=== PATIENT | male | born 1940 | race Caucasian/White ===

== ENCOUNTER 2020-01-15 13:30 | Inpatient (IN) ==
[2020-01-15] MEDS ORDERED: Aspirin 81 MG TAB.CHEW PO ONE (13:44)
[2020-01-15] MEDS ORDERED: 0.9 % Sodium Chloride 1,000 ML ONE (13:46)
[2020-01-15] MEDS ORDERED: *HR* Heparin 5,000 UNIT/ML VIAL ONE (13:46)
[2020-01-15] MEDS: *HR* Ticagrelor 90 MG TABLET ONE ×2 (13:51→13:52)
[2020-01-15 14:05] LABS: Basophils # 0.1 K/mcL (0.0-0.2); Basophils % 0.6 %; Eosinophils # 0.1 K/mcL (0.0-0.6); Eosinophils % 0.6 %; Hematocrit 42.4 % (37.5-50.1); Hemoglobin 13.9 g/dL (12.9-16.9); Immature Granulocytes % 0.9 % (0-4); Lymphocytes % 21.5 %; Mean Corpuscular HGB Conc 32.8 g/dL (31.6-35.5); Mean Corpuscular Hemoglobin 30.4 pg (28.0-33.3); Mean Corpuscular Volume 92.8 fL (83.0-100.0); Mean Platelet Volume 10.8 fL (9.4-12.4); Monocytes # 2.1 K/mcL (0.0-1.3); Monocytes % 15.2 %; Neutrophils # 8.5 K/mcL (1.6-8.9); Platelet Count 299 K/mcL (140-400); Red Blood Count 4.57 M/mcL (4.19-5.50); Red Cell Distribution Width 13.2 % (11.5-14.5); Segmented Neutrophils % 61.2 %; White Blood Count 13.9 K/mcL (4.3-11.1)
[2020-01-15 14:09] LABS: INR 1.2; Prothrombin Time 13.3 Seconds (9.4-12.1)
[2020-01-15 14:12] LABS: Activated Partial Thrombo Time 32.6 Seconds (26.0-36.0)
[2020-01-15 14:28] LABS: Calcium 9.5 mg/dL (8.6-10.3); Potassium 4.7 mEq/L (3.5-5.1); Troponin I 3.83 ng/mL (< 0.04)
[2020-01-15] MEDS: DilTIAZem 50 MG/50 ML IV.SOLN IVC SCH ×3 (14:38→22:06)
[2020-01-15] MEDS ORDERED: Perflutren Lipid Microsphere 1.3 ML in 0.9 % Sodium Chloride 8.7 ML IVP PRN (14:49)
[2020-01-15 14:56] LABS: Adenovirus Not Detected (Not Detect); Bordetella Pertussis Not Detected (Not Detect); Chlamydophila pneumoniae Not Detected (Not Detect); Coronavirus 229E Not Detected (Not Detect); Coronavirus HKU1 Not Detected (Not Detect); Coronavirus NL63 Not Detected (Not Detect); Coronavirus OC43 Not Detected (Not Detect); Human Metapneumovirus Not Detected (Not Detect); Human Rhinovirus/Enterovirus Not Detected (Not Detect); Influenza A Subtype 2009 H1 Not Detected (Not Detect); Influenza B Not Detected (Not Detect); Mycoplasma pneumoniae Not Detected (Not Detect); Parainfluenza Virus 1 Not Detected (Not Detect); Parainfluenza Virus 2 Not Detected (Not Detect); Parainfluenza Virus 3 Not Detected (Not Detect); Parainfluenza Virus 4 Not Detected (Not Detect); Respiratory Syncytial Virus Not Detected (Not Detect); SARS-CoV-2 Not Detected (Not Detect)
[2020-01-15] MEDS ORDERED: Nitroglycerin 1,000 MCG/10 ML VIAL IV ONE (15:27)
[2020-01-15] MEDS ORDERED: 0.9 % Sodium Chloride 2,000 ML ONE (15:27)
[2020-01-15] MEDS ORDERED: Heparin 1,000 UNITS/500 mL 500 ML ONE (15:27)
[2020-01-15] MEDS ORDERED: ISOVUE-370 200 ML INFUS..BTL ONE (15:27)
[2020-01-15] MEDS ORDERED: *HR* Heparin 10,000 UNIT/10 ML VIAL ONE (15:27)
[2020-01-15] MEDS ORDERED: Tirofiban 12.5 MG/250ML 12.5 MG/250 ML BAG ONE (15:42)
[2020-01-15] MEDS ORDERED: *HR* FentaNYL (PF) 100 MCG/2 ML VIAL ONE (16:04)
[2020-01-15] MEDS ORDERED: *HR* Midazolam HCl 2 MG/2 ML VIAL ONE (16:04)
[2020-01-15] MEDS ORDERED: *HR* Heparin 5,000 UNIT/ML VIAL IVP ONE (18:16)
[2020-01-15] MEDS ORDERED: *HR* Heparin 5,000 UNIT/ML VIAL IVP PRN ×2 (18:16)
[2020-01-15] MEDS ORDERED: Heparin 25,000UNIT/250ML 1/2NS 25,000 UNIT/250 ML IV.SOLN IVC SCH (18:30)
[2020-01-15] MEDS: *HR* Ticagrelor 90 MG TABLET PO SCH (19:48)
[2020-01-15 20:48] LABS: Hematocrit 41.4 % (37.5-50.1); Hemoglobin 13.6 g/dL (12.9-16.9); Mean Corpuscular HGB Conc 32.9 g/dL (31.6-35.5); Mean Corpuscular Hemoglobin 30.3 pg (28.0-33.3); Mean Corpuscular Volume 92.2 fL (83.0-100.0); Mean Platelet Volume 10.6 fL (9.4-12.4); Platelet Count 284 K/mcL (140-400); Red Blood Count 4.49 M/mcL (4.19-5.50); Red Cell Distribution Width 13.2 % (11.5-14.5)
[2020-01-15 20:54] LABS: Heparin anti-factor XA UFH < 0.04 IU/mL (0.30-0.70); INR 1.1; Prothrombin Time 12.8 Seconds (9.4-12.1)
[2020-01-16] MEDS: DilTIAZem 50 MG/50 ML IV.SOLN IVC SCH ×2 (01:26→06:57)
[2020-01-16] MEDS ORDERED: Aspirin 81 MG TAB.CHEW PO SCH (09:00)
[2020-01-16] MEDS ORDERED: *HR* Dextrose 50 % in Water (Vial) 50 ML VIAL IVP PRN ×2 (09:39→10:49)
[2020-01-16] MEDS ORDERED: D5% in Water 1,000 ML IVC PRN ×2 (09:39→10:49)
[2020-01-16] MEDS ORDERED: Dextrose Gel 15 GM/37.5 ML TUBE PO PRN ×4 (09:39→10:49)
[2020-01-16] MEDS ORDERED: DilTIAZem CD (24hr) 240 MG CAP.ER.24H PO SCH (09:45)
[2020-01-16] MEDS: *HR* Ticagrelor 90 MG TABLET PO SCH ×2 (10:44→20:34)
[2020-01-16] MEDS ORDERED: *HR* Heparin 5,000 UNIT/ML VIAL IVP PRN ×2 (10:49)
[2020-01-16] MEDS ORDERED: Fluticasone Propionate Nasal 50 MCG/SPRAY BOTTLE NS PRN (10:49)
[2020-01-16] MEDS ORDERED: Methyl Salicylate/Menthol 57 APPL/57 GM TUBE TP PRN (10:49)
[2020-01-16] MEDS ORDERED: Heparin 25,000UNIT/250ML 1/2NS 25,000 UNIT/250 ML IV.SOLN IVC SCH ×2 (10:49→13:30)
[2020-01-16] MEDS ORDERED: *HR* Heparin 5,000 UNIT/ML VIAL IVP ONE (10:49)
[2020-01-16] MEDS ORDERED: Insulin LISPRO 300 UNITS/3 ML VIAL SQ SCH (11:30)
[2020-01-16] MEDS: Insulin LISPRO 300 UNITS/3 ML VIAL SQ SCH ×2 (12:06→17:07)
[2020-01-16] MEDS: Apixaban 5 MG TABLET PO SCH (20:34)
[2020-01-17 05:16] LABS: Basophils # 0.1 K/mcL (0.0-0.2); Basophils % 0.7 %; Eosinophils # 0.2 K/mcL (0.0-0.6); Eosinophils % 1.4 %; Hematocrit 40.4 % (37.5-50.1); Hemoglobin 13.5 g/dL (12.9-16.9); Immature Granulocytes % 0.7 % (0-4); Lymphocytes # 1.5 K/mcL (0.6-4.6); Lymphocytes % 14.9 %; Mean Corpuscular HGB Conc 33.4 g/dL (31.6-35.5); Mean Corpuscular Hemoglobin 30.4 pg (28.0-33.3); Mean Platelet Volume 10.9 fL (9.4-12.4); Monocytes # 1.2 K/mcL (0.0-1.3); Monocytes % 11.9 %; Neutrophils # 7.3 K/mcL (1.6-8.9); Platelet Count 269 K/mcL (140-400); Red Blood Count 4.44 M/mcL (4.19-5.50); Red Cell Distribution Width 12.9 % (11.5-14.5); Segmented Neutrophils % 70.4 %; White Blood Count 10.4 K/mcL (4.3-11.1)
[2020-01-17 05:33] LABS: Alanine Aminotransferase 13 Units/L (7-52); Aspartate Amino Transferase 13 Units/L (13-39); BUN/Creatinine Ratio 19 (6-26); Blood Urea Nitrogen 20 mg/dL (8-23); Calcium 9.1 mg/dL (8.6-10.3); Carbon Dioxide 24 mEq/L (23-29); Chloride 102 mEq/L (98-107); Chol/HDL Ratio 4.1 (0-4.9); Cholesterol 131 mg/dL (< 200); Glucose 229 mg/dL (70-105); HDL Cholesterol 32 mg/dL (40-59); LDL Cholesterol,Calculated 51 mg/dL (< 100); Osmolality,Calculated 290 (280-300); Potassium 3.9 mEq/L (3.5-5.1); Sodium 135 mEq/L (136-145); Triglycerides 242 mg/dL (< 150); eGFR For African Americans > 60 (> 60); eGFR For Non-African Americans > 60 (> 60)
[2020-01-17 05:45] LABS: Thyroid Stimulating Hormone 1.724 mcIU/mL (0.340-5.600)
[2020-01-17 07:16] VITALS: BP 146/79
[2020-01-17] MEDS: *HR* Ticagrelor 90 MG TABLET PO SCH (07:59)
[2020-01-17] MEDS: Apixaban 5 MG TABLET PO SCH (07:59)
[2020-01-17] MEDS: Insulin LISPRO 300 UNITS/3 ML VIAL SQ SCH ×2 (08:00→12:27)
[2020-01-17] MEDS ORDERED: Aspirin 81 MG TAB.CHEW PO SCH (09:00)
[2020-01-17] MEDS ORDERED: Metoprolol XL (24 HR) Succ 25 MG TAB.ER.24H PO SCH (09:00)
[2020-01-17] MEDS ORDERED: DilTIAZem CD (24hr) 240 MG CAP.ER.24H PO SCH (09:00)
[2020-01-18] MEDS ORDERED: DilTIAZem CD (24hr) 120 MG CAP.ER.24H PO SCH (09:00)
== END 2020-01-17 14:20 | disposition home or self-care (01) | DRG 282 ==
LOC: EMEROOARM 13:30 → ICNU 15:11
PROVIDERS: ADMIT Internal Medicine Cardiovascular Disease; ATTEND Internal Medicine Cardiovascular Disease